=== PATIENT | male | born 1960 | race Caucasian/White ===

== ENCOUNTER 2020-06-11 01:53 | Emergency (ER) | payer OTHER ==
--- NOTE | 2020-06-11 02:07 | EDM.PDOC ---
ED HPI GENERAL MEDICAL PROBLEM - General Stated Complaint: RIGHT SIDE RIGHT PAIN STOMACH AREA Time Seen by Provider: 06/11/20 02:02 Source of Information: Reports: Patient, Family History Limitations: Reports: No Limitations - History of Present Illness INITIAL COMMENTS - FREE TEXT/NARRATIVE: abd pain since last Thursday, saw clinic told was [place] Vs pulled mscl had trace blood in urine. not getting better and abd seems to be bigger.constant RLQ region pain, nausea but no V/D, regular BM. did eat ham sandwich today 1pm. Right Lower Abdomen Pain Score (Numeric/FACES): 8 - Related Data Allergies Allergy/AdvReac Type Severity Reaction Status Date / Time No Known Allergies Allergy Verified 03/02/16 23:06 Past Medical History Cardiovascular History: Reports: High Cholesterol, Hypertension Endocrine/Metabolic History: Reports: Diabetes, Type II Social & Family History - Family History Family Medical History: Noncontributory ED ROS GENERAL - Review of Systems Review Of Systems: Comprehensive ROS is negative, except as noted in HPI. ED EXAM, GI/ABD - Physical Exam Exam: See Below Exam Limited By: No Limitations General Appearance: Alert, WD/WN, Mild Distress, Moderate Distress, Other (discomfort). No: Active Emesis Ears: Hearing Grossly Normal Throat/Mouth: Normal Voice, No Airway Compromise Head: Atraumatic Neck: Non-Tender, Full Range of Motion Respiratory/Chest: No Respiratory Distress Cardiovascular: Regular Rate, Rhythm GI/Abdominal Exam: Distended, Guarding, Tender, Other (right side> minimal BS) (Male) Exam: Deferred Rectal (Males) Exam: Deferred Neurological: Alert, Oriented, Normal Cognition, No Motor/Sensory Deficits, Other (gait limited to discomfort) Psychiatric: Flat Affect Skin Exam: Warm, Dry, Normal Color Lymphatic: No Adenopathy Course - Vital Signs Last Recorded V/S: Last Vital Signs Temp 37.1 C 06/11/20 01:57 Pulse 106 H 06/11/20 01:57 Resp 18 06/11/20 01:57 BP 153/101 H 06/11/20 01:57 Pulse Ox 93 L 06/11/20 01:57 - Orders/Labs/Meds Orders: Active Orders 24 hr Category Date Time Status CULTURE BLOOD [BC] Stat Lab 06/11/20 02:05 Results Acetaminophen/HYDROcodone [[place] 325-10 MG] Med 06/11/20 03:32 Once 1 tab PO ONETIME ONE Labs: Laboratory Tests 06/11/20 06/11/20 06/11/20 Range/Units 02:05 02:05 02:05 WBC 12.9 H (5.0-10.0) 10^3/uL RBC 4.91 (4.6-6.2) 10^6/uL Hgb 15.2 (14.0-18.0) g/dL Hct 44.0 (40.0-54.0) % MCV 89.6 (80-100) fL MCH 31.0 (27.0-34.0) pg MCHC 34.5 (33.0-35.0) g/dL Plt Count 191 (150-450) 10^3/uL Neut % (Auto) 69.3 (42.2-75.2) % Lymph % (Auto) 16.1 L (20.5-50.1) % [place] % (Auto) 10.2 H (2-8) % Eos % (Auto) 4.1 H (1.0-3.0) % Baso % (Auto) 0.3 (0.0-1.0) % Sodium 139 (136-145) mmol/L Potassium 3.9 (3.5-5.1) mmol/L Chloride 103 (98-107) mmol/L Carbon Dioxide 28 (21-32) mmol/L Anion Gap 11.9 (7-13) mEq/L BUN 14 (7-18) mg/dL Creatinine 1.34 H (0.70-1.30) mg/dL Est Cr Clr Drug Dosing 44.75 mL/min Estimated GFR (MDRD) 55 BUN/Creatinine Ratio 10.4 (No establ ref range) Glucose 135 H (74-99) mg/dL Lactic Acid 1.1 (0.4-2.0) mmol/L Calcium 9.2 (8.5-10.1) mg/dL Total Bilirubin 0.7 (0.2-1.0) mg/dL AST 48 H (15-37) U/L ALT 60 (16-63) U/L Alkaline Phosphatase 112 (46-116) U/L Total Protein 8.3 H (6.4-8.2) g/dL Albumin 3.4 (3.4-5.0) g/dL Globulin 4.9 Albumin/Globulin Ratio 0.7 Amylase 70 (25-115) U/L Lipase 125 (73-393) U/L Urine Color (YELLOW) Urine Appearance (CLEAR) Urine pH (5.0-9.0) Ur Specific [place] (1.005-1.030) Urine Protein (NEGATIVE) Urine Glucose (UA) (NEGATIVE) Urine Ketones (NEGATIVE) Urine Occult Blood (NEGATIVE) Urine Nitrite (NEGATIVE) Urine Bilirubin (NEGATIVE) Urine Urobilinogen (0.2-1.0) mg/dL Ur Leukocyte Esterase (NEGATIVE) Urine RBC /HPF Urine WBC (0-5/HPF) /HPF Ur Epithelial Cells (NOT SEEN) /HPF Urine Bacteria (0-FEW/HPF) /HPF 06/11/20 Range/Units 02:26 WBC (5.0-10.0) 10^3/uL RBC (4.6-6.2) 10^6/uL Hgb (14.0-18.0) g/dL Hct (40.0-54.0) % MCV (80-100) fL MCH (27.0-34.0) pg MCHC (33.0-35.0) g/dL Plt Count (150-450) 10^3/uL Neut % (Auto) (42.2-75.2) % Lymph % (Auto) (20.5-50.1) % [place] % (Auto) (2-8) % Eos % (Auto) (1.0-3.0) % Baso % (Auto) (0.0-1.0) % Sodium (136-145) mmol/L Potassium (3.5-5.1) mmol/L Chloride (98-107) mmol/L Carbon Dioxide (21-32) mmol/L Anion Gap (7-13) mEq/L BUN (7-18) mg/dL Creatinine (0.70-1.30) mg/dL Est Cr Clr Drug Dosing mL/min Estimated GFR (MDRD) BUN/Creatinine Ratio (No establ ref range) Glucose (74-99) mg/dL Lactic Acid (0.4-2.0) mmol/L Calcium (8.5-10.1) mg/dL Total Bilirubin (0.2-1.0) mg/dL AST (15-37) U/L ALT (16-63) U/L Alkaline Phosphatase (46-116) U/L Total Protein (6.4-8.2) g/dL Albumin (3.4-5.0) g/dL Globulin Albumin/Globulin Ratio Amylase (25-115) U/L Lipase (73-393) U/L Urine Color Yellow (YELLOW) Urine Appearance Clear (CLEAR) Urine pH 7.0 (5.0-9.0) Ur Specific [place] >= 1.030 (1.005-1.030) Urine Protein >=300 H (NEGATIVE) Urine Glucose (UA) Negative (NEGATIVE) Urine Ketones Negative (NEGATIVE) Urine Occult Blood Trace-intact H (NEGATIVE) Urine Nitrite Negative (NEGATIVE) Urine Bilirubin Negative (NEGATIVE) Urine Urobilinogen 0.2 (0.2-1.0) mg/dL Ur Leukocyte Esterase Negative (NEGATIVE) Urine RBC 0-5 /HPF Urine WBC Not seen (0-5/HPF) /HPF Ur Epithelial Cells Few (NOT SEEN) /HPF Urine Bacteria Few (0-FEW/HPF) /HPF - Re-Assessments/Exams Free Text/Narrative Re-Assessment/Exam: 06/11/20 03:32 results discussed with pt and spouse. pt states has appt with Dr Cowart in Departure - Departure Time of Disposition: 03:33 Disposition: Home, Self-Care 01 Condition: Good Clinical Impression: Renal cyst, Renal cyst, [place], hemorrhage Hematuria Qualifiers: Hematuria type: unspecified type Qualified Code(s): R31.9 - Hematuria, unspecified - Discharge Information Forms: ED Department Discharge Additional Instructions: 1) call Dr Cowart tomorrow about HEMORRHAGIC CYSTE OF RIGHT KIDNEY 2) avoid solid foods next 48 hours 3) try MIRALAX from [facility] Sepsis Event Note (ED) - Focused Exam Vital Signs: Vital Signs Temp Pulse Resp BP Pulse Ox 06/11/20 01:57 37.1 C 106 H 18 153/101 H 93 L - My Orders Last 24 Hours: My Active Orders 06/11/20 02:05 CULTURE BLOOD [BC] Stat 06/11/20 03:32 Acetaminophen/HYDROcodone [[place] 325-10 MG] 1 tab PO ONETIME ONE - Assessment/Plan Last 24 Hours: My Active Orders 06/11/20 02:05 CULTURE BLOOD [BC] Stat 06/11/20 03:32 Acetaminophen/HYDROcodone [[place] 325-10 MG] 1 tab PO ONETIME ONE
[2020-06-11 02:30] LABS: ANION GAP 11.9 mEq/L (7-13)
--- NOTE | 2020-06-11 03:20 | CT ---
PROCEDURE INFORMATION: Exam: CT Abdomen Without Contrast Exam date and time: 06/11/2020 3:00 AM Age: 60 years old Clinical indication: Other: Right sided pain; Additional info: Pain bloating haematuria TECHNIQUE: Imaging protocol: Computed tomography images of the abdomen without contrast. Radiation optimization: All CT scans at this facility use at least one of these dose optimization techniques: automated exposure control; mA and/or kV adjustment per patient size (includes targeted exams where dose is matched to clinical indication); or iterative reconstruction. COMPARISON: No relevant prior studies available. FINDINGS: Lungs: Strandy opacities are present within the right lung base likely representing atelectasis. However, a superimposed right basilar pneumonia cannot be entirely excluded. Liver: There is a mild nodular contour of the liver, findings suggesting cirrhosis. Gallbladder and bile ducts: Normal. No calcified stones. No ductal dilation. Pancreas: Normal. No ductal dilation. Spleen: Normal. No splenomegaly. Adrenals: Normal. No mass. Kidneys and ureters: There is a 3.8 cm simple appearing cyst seen in the lower pole of the left kidney. There is a 1.7 cm slightly hypodense lesions seen on the lateral aspect of the right kidney possibly representing a hemorrhagic cyst. Further evaluation is finding with renal sonography is suggested initially. Stomach and bowel: Visualized stomach and bowel are unremarkable. No obstruction. No mucosal thickening. Appendix: The the appendix is visualized and is normal in configuration. Intraperitoneal space: Unremarkable. No free air. No significant fluid collection. Lymph nodes: The a mildly prominent subcarinal lymph node is seen on the left measuring 10 mm transverse dimension. Vasculature: Unremarkable. No abdominal aortic aneurysm. Bones/joints: Unremarkable. No acute fracture. No dislocation. Soft tissues: Unremarkable. IMPRESSION: 1. Nodular contour of the liver suggesting cirrhosis. 2. Benign appearing 3.8 cm left renal cyst. No further workup needed. 3. Slightly hypodense 1.7 cm lesion on the lateral aspect of the right kidney may represent a hemorrhagic cyst. Further evaluation with renal sonography is suggested initially. COMMENTS: Consistent with the [employer]'s Incidental Findings Committee white paper (J Am Sharla Radiol 2018): Any incidental renal lesion less than 1 cm or classified as too small to characterize, or any incidental cystic renal lesion characterized as simple-appearing, is likely benign. No follow-up imaging is recommended for these lesions per consensus recommendations based on imaging criteria.
[2020-06-11] MEDS ORDERED: Acetaminophen/HYDROcodone 325-10 MG Tab PO ONE (03:32)
[2020-06-11 03:53] VITALS: BP 144/82; PULSE 77
== END 2020-06-11 03:52 | disposition home or self-care (01) ==
LOC: DL.ED 01:53
DX: N28.1 Cyst of kidney, acquired (principal); R31.9 Hematuria, unspecified; I10 Essential (primary) hypertension; E11.9 Type 2 diabetes mellitus without complications
CPT/HCPCS: 36415; 74176; 80053; 81001; 82150; 83605; 83690; 85025; 87040; 99284; A9270; 99283

== ENCOUNTER 2022-09-16 06:00 | Day surgery (SDC) | payer OTHER ==
[~2022-09-16 06:00] MED LIST: Dextrose 5%-0.45% NaCl 1,000 ML IV SCH; Sodium Chloride 0.9% 10 ML Syringe FLUSH PRN; Sodium Chloride 0.9% 10 ML Syringe FLUSH SCH
[2022-09-16] MEDS ORDERED: fentaNYL 100 MCG/2 ML SDV IV ONE ×3 (06:01→06:43)
[2022-09-16] MEDS ORDERED: Midazolam 1 MG/ML 2 ML SDV IV ONE ×6 (06:01→06:49)
[2022-09-16] MEDS ORDERED: Midazolam 1 MG/ML 2 ML SDV ONE (06:06)
[2022-09-16] MEDS ORDERED: fentaNYL 100 MCG/2 ML SDV ONE (06:07)
[2022-09-16 08:31] VITALS: BP 155/90; PULSE 82
== END 2022-09-16 08:55 | disposition home or self-care (01) ==
LOC: DL.ENDO 06:00
PROVIDERS: ATTEND Internal Medicine Gastroenterology
DX: Z12.11 Encounter for screening for malignant neoplasm of colon (principal); D12.0 Benign neoplasm of cecum; E66.09 Other obesity due to excess calories; I12.9 Hypertensive chronic kidney disease with stage 1 through stage 4 chronic kidney disease, or unspecified chronic kidney disease; N18.9 Chronic kidney disease, unspecified; E11.22 Type 2 diabetes mellitus with diabetic chronic kidney disease; E87.6 Hypokalemia; N25.81 Secondary hyperparathyroidism of renal origin; Z88.8 Allergy status to other drugs, medicaments and biological substances; Z98.890 Other specified postprocedural states; Z68.31 Body mass index [BMI] 31.0-31.9, adult
CPT/HCPCS: 45385; J2250; J3010; J7042

== ENCOUNTER 2022-10-27 19:49 | Emergency (ER) | payer OTHER ==
[2022-10-27] MEDS ORDERED: Acetaminophen/oxyCODONE 325-5 MG Tab PO ONE (19:50)
[2022-10-27 20:05] VITALS: BP 123/75; PULSE 55
[2022-10-27] MEDS ORDERED: fentaNYL 100 MCG/2 ML SDV IVPUSH ONE ×3 (20:14→20:36)
[2022-10-27] MEDS ORDERED: Midazolam 1 MG/ML 2 ML SDV IVPUSH ONE (20:14)
[2022-10-27] MEDS ORDERED: Sodium Chloride 0.9% 10 ML Syringe FLUSH PRN (20:14)
[2022-10-27] MEDS ORDERED: Acetaminophen/oxyCODONE 325-5 MG Tab ONE (22:44)
== END 2022-10-27 22:57 | disposition home or self-care (01) ==
LOC: DL.ED 19:49
DX: S42.255A Nondisplaced fracture of greater tuberosity of left humerus, initial encounter for closed fracture (principal); S43.005A Unspecified dislocation of left shoulder joint, initial encounter; E11.22 Type 2 diabetes mellitus with diabetic chronic kidney disease; I12.0 Hypertensive chronic kidney disease with stage 5 chronic kidney disease or end stage renal disease; N18.5 Chronic kidney disease, stage 5; Z88.8 Allergy status to other drugs, medicaments and biological substances; W00.0XXA Fall on same level due to ice and snow, initial encounter
CPT/HCPCS: 01620; 23650; 23655; 73020; 73030; 96374; 96375; 99283; 99284; J2250; J3010